=== PATIENT | male | born 1965 | race African-American/Black ===

== ENCOUNTER 2020-04-29 11:37 | Observation (INO) ==
[2020-04-29] MEDS ORDERED: SODIUM CHLORIDE 0.9% 1,000 ML IV STA ×2 (12:18→13:24)
[2020-04-29 12:59] LABS: Basophils % 0.1 % (0.0-0.8); Hematocrit 40.9 VOL% (42.0-52.0); Hemoglobin 13.1 GM/DL (14.0-18.0); Immature Granulocytes % 0.3 %; Immature Granulocytes Absolute 0.02 #; Lymphocytes # 0.9 10*3/uL (1.4-4.0); Mean Corpuscular Volume 81.3 FL (87-102); Mean Platelet Volume 9.9 FL (9.6-12.0); Monocytes % 5.1 % (1.7-12.7); Neutrophils % 81.5 % (38.7-73.9); Platelet Count 205 T/CUMM (130-400); Red Blood Count 5.03 MC/CUMM (3.8-5.5); White Blood Count 6.7 T/CUMM (4-12)
[2020-04-29 13:19] LABS: Alanine Aminotransferase 17 U/L (16-61); Albumin 3.1 G/DL (3.4-5.0); Alkaline Phosphatase 65 U/L (45-117); Aspartate Amino Transferase 25 U/L (0-37); Bilirubin,Total < 0.39 MG/DL (0.2-1.0); Blood Urea Nitrogen 12 MG/DL (7-18); Carbon Dioxide 18 MMOL/L (21-32); Estimated Glom Filtration Rate 105 ML/MIN; Glucose 258 MG/DL (74-106); Osmolality,Calculated 276.2 MOS/KG (273-304); Potassium 4.2 MMOL/L (3.5-5.1); Sodium 134 MMOL/L (136-145); Total Protein 7.9 G/DL (6.4-8.3)
[2020-04-29 14:00] LABS: Ferritin 275.4 ng/ml (26-388)
[2020-04-29] MEDS ORDERED: GLUCAGON 1 MG VIAL IM PRN ×2 (14:18)
[2020-04-29] MEDS ORDERED: DEXTROSE 50% 25 GM/50 ML VIAL IV PRN ×2 (14:18)
[2020-04-29] MEDS ORDERED: SODIUM CHLORIDE 0.9% 1,000 ML IV SCH (14:30)
[2020-04-29] MEDS ORDERED: ENOXAPARIN 40 MG/0.4 ML SYRINGE SUBCUT SCH (14:30)
[2020-04-29] MEDS: GLIMEPIRIDE 4 MG TABLET PO SCH (15:46)
[2020-04-29] MEDS: INSULIN LISPRO 100 UNIT/ML SUBCUT SCH ×2 (15:51→21:40)
[2020-04-29] MEDS: ACETAMINOPHEN 325 MG TABLET PO PRN ×2 (16:36→21:42)
[2020-04-29] MEDS: PREGABALIN 75 MG CAPSULE PO SCH (21:41)
[2020-04-29] MEDS: CHOLECALCIFEROL 400 UNIT TABLET PO SCH (21:42)
[2020-04-30 05:55] LABS: Basophils % 0.6 % (0.0-0.8); Hematocrit 34.9 VOL% (42.0-52.0); Hemoglobin 11.4 GM/DL (14.0-18.0); Immature Granulocytes % 0.3 %; Immature Granulocytes Absolute 0.01 #; Lymphocytes # 1.5 10*3/uL (1.4-4.0); Lymphocytes % 42.3 % (21.2-54.2); Mean Corpuscular HGB Conc 32.7 GM/DL (32-36); Mean Corpuscular Volume 79.5 FL (87-102); Mean Platelet Volume 9.7 FL (9.6-12.0); Monocytes % 8.4 % (1.7-12.7); Neutrophils % 48.4 % (38.7-73.9); Platelet Count 175 T/CUMM (130-400); Red Blood Count 4.39 MC/CUMM (3.8-5.5); Red Cell Distribution Width 13.9 % (9.3-17.3); White Blood Count 3.6 T/CUMM (4-12)
[2020-04-30 06:16] LABS: Osmolality,Calculated 283.4 MOS/KG (273-304); Potassium 3.7 MMOL/L (3.5-5.1)
[2020-04-30] MEDS ORDERED: MAGNESIUM SULF RIDER 2 GM in PREMIX 1 EACH IV ONE (07:55)
[2020-04-30] MEDS: GLIMEPIRIDE 4 MG TABLET PO SCH (08:18)
[2020-04-30] MEDS: PREGABALIN 75 MG CAPSULE PO SCH (08:19)
[2020-04-30] MEDS: INSULIN LISPRO 100 UNIT/ML SUBCUT SCH (08:20)
[2020-04-30] MEDS: CHOLECALCIFEROL 400 UNIT TABLET PO SCH (08:21)
[2020-04-30] MEDS ORDERED: THIAMINE 100 MG TABLET PO SCH (09:00)
[2020-04-30] MEDS ORDERED: PANTOPRAZOLE 40 MG TABLET PO SCH (09:00)
[2020-04-30] MEDS ORDERED: ZINC SULFATE 220 MG CAPSULE PO SCH (09:00)
[2020-04-30] MEDS ORDERED: ASCORBIC ACID 500 MG TABLET PO SCH (09:00)
[2020-04-30 11:09] VITALS: BP 136/71
== END 2020-04-30 11:50 | disposition home or self-care (01) ==
LOC: N.ED 11:37 → N.EDINP 11:37 → N.2E 15:18
PROVIDERS: ADMIT Internal Medicine; ATTEND Internal Medicine

== ENCOUNTER 2020-05-04 10:23 | Inpatient (IN) ==
[2020-05-04 11:57] LABS: Basophils % 0.1 % (0.0-0.8); Hematocrit 37.6 VOL% (42.0-52.0); Hemoglobin 11.9 GM/DL (14.0-18.0); Immature Granulocytes % 0.7 %; Immature Granulocytes Absolute 0.07 #; Lymphocytes % 10.1 % (21.2-54.2); Mean Corpuscular HGB Conc 31.6 GM/DL (32-36); Mean Corpuscular Volume 80.5 FL (87-102); Mean Platelet Volume 9.9 FL (9.6-12.0); Monocytes % 3.6 % (1.7-12.7); Neutrophils % 85.5 % (38.7-73.9); Platelet Count 290 T/CUMM (130-400); Red Blood Count 4.67 MC/CUMM (3.8-5.5); Red Cell Distribution Width 14.3 % (9.3-17.3); White Blood Count 10.1 T/CUMM (4-12)
[2020-05-04] MEDS ORDERED: SODIUM CHLORIDE 0.9% 1,000 ML IV STA ×2 (12:18→14:58)
[2020-05-04 12:21] LABS: Alanine Aminotransferase 26 U/L (16-61); Albumin 2.6 G/DL (3.4-5.0); Alkaline Phosphatase 77 U/L (45-117); Aspartate Amino Transferase 45 U/L (0-37); Bilirubin,Total < 0.39 MG/DL (0.2-1.0); Blood Urea Nitrogen 9 MG/DL (7-18); Calcium 8.5 MG/DL (8.5-10.1); Carbon Dioxide 24 MMOL/L (21-32); Estimated Glom Filtration Rate 108 ML/MIN; Glucose 277 MG/DL (74-106); Osmolality,Calculated 278.1 MOS/KG (273-304); Potassium 3.8 MMOL/L (3.5-5.1); Sodium 135 MMOL/L (136-145); Total Protein 7.1 G/DL (6.4-8.3)
[2020-05-04] MEDS ORDERED: ACETAMINOPHEN 325 MG/10.15 ML UDCUP PO STA (12:53)
[2020-05-04] MEDS ORDERED: ACETAMINOPHEN 325 MG TABLET ONE (13:10)
[2020-05-04 13:12] LABS: Amorphous Crystals,Urine Occasional /HPF (Few); Bilirubin,Urine Negative (Negative); Blood, Urine Negative (Negative); Glucose,Urine (UA) >=500 mg/dL (Negative); Ketones,Urine 80 mg/dL (Negative); Mucus,Urine Occasional /LPF (Occasional); Nitrite,Urine Negative (Negative); Protein,Urine 100 MG/DL; RBC,Urine 2 /HPF (0-4); Squamous Epithelial Cell,Urine Occasional /HPF (0-10); Urine Appearance CLEAR (Clear); Urine Color Yellow (Yellow); Urine Specific Gravity 1.026 (1.001-1.035); Urine Urobilinogen < 2.0 EU/DL (0.2-1.0); WBC,Urine 4 /HPF (0-6)
[2020-05-04] MEDS ORDERED: ONDANSETRON 4 MG/2 ML VIAL IV STA (14:58)
[2020-05-04 15:40] LABS: Troponin I < 0.015 NG/ML (0.00-0.045)
[2020-05-04] MEDS ORDERED: DEXTROSE 50% 25 GM/50 ML VIAL IV PRN ×2 (15:43→16:23)
[2020-05-04] MEDS ORDERED: GLUCAGON 1 MG VIAL IM PRN (15:43)
[2020-05-04 16:44] LABS: ABG Oxygen Saturation 95.1 % (95-100); ABG PCO2 31.5 MM HG (35-48); ABG PO2 78.7 MM HG (80-95); ABG TCO2 16.3 MMOL/L (23-27); Allen Test Positive; Pt O2 Delivery Device Room Air
[2020-05-04] MEDS: INSULIN LISPRO 100 UNIT/ML SUBCUT SCH ×2 (18:06→20:53)
[2020-05-04] MEDS: SODIUM CHLORIDE 0.9% 1,000 ML IV SCH (18:13)
[2020-05-04] MEDS: cefTRIAXone 1,000 MG in SYRINGE 1 EACH IV SCH (18:13)
[2020-05-04] MEDS: DEXAMETHASONE 4 MG TABLET PO SCH (18:16)
[2020-05-04] MEDS: ENOXAPARIN 40 MG/0.4 ML SYRINGE SUBCUT SCH (18:17)
[2020-05-04] MEDS ORDERED: MAGNESIUM SULF RIDER 2 GM in PREMIX 1 EACH IV ONE (20:00)
[2020-05-04] MEDS: INSULIN GLARGINE 100 UNIT/ML SUBCUT SCH (20:54)
[2020-05-05] MEDS: SODIUM CHLORIDE 0.9% 1,000 ML IV SCH ×3 (00:27→18:28)
[2020-05-05] MEDS: ENOXAPARIN 40 MG/0.4 ML SYRINGE SUBCUT SCH ×2 (04:06→18:26)
[2020-05-05] MEDS: cefTRIAXone 1,000 MG in SYRINGE 1 EACH IV SCH ×2 (06:13→18:26)
[2020-05-05 06:37] LABS: Basophils % 0.1 % (0.0-0.8); Hematocrit 32.8 VOL% (42.0-52.0); Hemoglobin 10.4 GM/DL (14.0-18.0); Immature Granulocytes % 1.1 %; Immature Granulocytes Absolute 0.11 #; Lymphocytes # 1.3 10*3/uL (1.4-4.0); Lymphocytes % 13.5 % (21.2-54.2); Mean Corpuscular HGB Conc 31.7 GM/DL (32-36); Mean Corpuscular Volume 81.4 FL (87-102); Mean Platelet Volume 9.6 FL (9.6-12.0); Monocytes % 4.4 % (1.7-12.7); Neutrophils % 80.9 % (38.7-73.9); Platelet Count 301 T/CUMM (130-400); Red Blood Count 4.03 MC/CUMM (3.8-5.5); Red Cell Distribution Width 14.4 % (9.3-17.3); White Blood Count 9.8 T/CUMM (4-12)
[2020-05-05 07:02] LABS: Hypochromasia 1+; Lymphocytes 9 % (20-55); Microcytosis 1+; Platelet Estimate Adequate; Segmented Neutrophils 86 % (50-85); Total Cells Counted 100
[2020-05-05 07:09] LABS: Bilirubin,Total 0.4 MG/DL (0.2-1.0); Calcium 8.4 MG/DL (8.5-10.1); Osmolality,Calculated 286.4 MOS/KG (273-304); Potassium 4.3 MMOL/L (3.5-5.1)
[2020-05-05] MEDS: DEXAMETHASONE 4 MG TABLET PO SCH (09:16)
[2020-05-05] MEDS: AZITHROMYCIN 250 MG TABLET PO SCH (09:16)
[2020-05-05] MEDS: amLODIPine 5 MG TABLET PO SCH (09:16)
[2020-05-05] MEDS: INSULIN LISPRO 100 UNIT/ML SUBCUT SCH ×4 (09:17→21:30)
[2020-05-05] MEDS: hydrALAZINE 25 MG TABLET PO SCH ×3 (09:17→21:30)
[2020-05-05 14:49] LABS: Bilirubin,Urine Negative (Negative); Blood, Urine Negative (Negative); Glucose,Urine (UA) >=500 mg/dL (Negative); Ketones,Urine 20 mg/dL (Negative); Mucus,Urine Occasional /LPF (Occasional); Nitrite,Urine Negative (Negative); Protein,Urine Negative; RBC,Urine 2 /HPF (0-4); Squamous Epithelial Cell,Urine Occasional /HPF (0-10); Urine Appearance CLEAR (Clear); Urine Color Straw (Yellow); Urine Specific Gravity 1.022 (1.001-1.035); Urine Urobilinogen < 2.0 EU/DL (0.2-1.0); WBC,Urine <1 /HPF (0-6)
[2020-05-05] MEDS: INSULIN GLARGINE 100 UNIT/ML SUBCUT SCH (21:29)
[2020-05-06] MEDS: SODIUM CHLORIDE 0.9% 1,000 ML IV SCH ×2 (02:05→10:52)
[2020-05-06] MEDS: ENOXAPARIN 40 MG/0.4 ML SYRINGE SUBCUT SCH (04:11)
[2020-05-06 05:13] LABS: Basophils % 0.1 % (0.0-0.8); Hematocrit 31.9 VOL% (42.0-52.0); Hemoglobin 10.2 GM/DL (14.0-18.0); Immature Granulocytes Absolute 0.25 #; Lymphocytes # 1.4 10*3/uL (1.4-4.0); Lymphocytes % 10.8 % (21.2-54.2); Mean Platelet Volume 9.7 FL (9.6-12.0); Monocytes % 6.5 % (1.7-12.7); NRBC # 0.02 10*3/uL; Neutrophils % 80.6 % (38.7-73.9); Platelet Count 362 T/CUMM (130-400); Red Blood Count 3.94 MC/CUMM (3.8-5.5); Red Cell Distribution Width 14.2 % (9.3-17.3); White Blood Count 12.8 T/CUMM (4-12)
[2020-05-06 05:34] LABS: Alanine Aminotransferase 42 U/L (16-61); Albumin 1.8 G/DL (3.4-5.0); Alkaline Phosphatase 74 U/L (45-117); Aspartate Amino Transferase 57 U/L (0-37); Bilirubin,Total < 0.39 MG/DL (0.2-1.0); Blood Urea Nitrogen 16 MG/DL (7-18); Calcium 7.9 MG/DL (8.5-10.1); Carbon Dioxide 22 MMOL/L (21-32); Estimated Glom Filtration Rate 132 ML/MIN; Glucose 267 MG/DL (74-106); Osmolality,Calculated 290.3 MOS/KG (273-304); Sodium 141 MMOL/L (136-145); Total Protein 6.2 G/DL (6.4-8.9)
[2020-05-06] MEDS: cefTRIAXone 1,000 MG in SYRINGE 1 EACH IV SCH (05:41)
[2020-05-06 05:43] LABS: Band Neutrophils 26 % (0-10); Lymphocytes 10 % (20-55); Platelet Estimate Normal; Segmented Neutrophils 59 % (50-85); Total Cells Counted 100
[2020-05-06 05:44] LABS: Anisocytosis 1+; Burr Cells Few; Target Cells Few
[2020-05-06] MEDS ORDERED: GLIMEPIRIDE 4 MG TABLET PO SCH (08:00)
[2020-05-06] MEDS ORDERED: metFORMIN 500 MG TABLET PO SCH (08:00)
[2020-05-06] MEDS: AZITHROMYCIN 250 MG TABLET PO SCH (10:40)
[2020-05-06] MEDS: DEXAMETHASONE 4 MG TABLET PO SCH (10:40)
[2020-05-06] MEDS: hydrALAZINE 25 MG TABLET PO SCH (10:40)
[2020-05-06] MEDS: INSULIN LISPRO 100 UNIT/ML SUBCUT SCH ×2 (10:40→11:10)
[2020-05-06] MEDS: amLODIPine 5 MG TABLET PO SCH (10:40)
[2020-05-06 11:14] VITALS: BP 152/82
== END 2020-05-06 11:40 | disposition home or self-care (01) | DRG 177 ==
LOC: N.ED 10:23 → N.2E 16:23 → SUATTDRO 16:23 → N.2E 18:11
PROVIDERS: ADMIT Internal Medicine; ATTEND Internal Medicine Geriatric Medicine